=== PATIENT | male | born 1945 | race Caucasian/White ===

== ENCOUNTER 2016-07-24 09:27 | Day surgery (SDC) | payer OTHER, BC ==
[~2016-07-24] VITALS: Ht 182.9 cm; Wt 97.0 kg
[~2016-07-24 09:27] MED LIST: ADVAIR 500/501 DISK IH; DIOVAN160 MG PO; GLUCOPHAGE1000 MG PO; LEVO-T150 MCG PO; LO-DOSE ASPIRIN81 M2 PO; LOFIBRA,TRIGLI160 MG PO; PRILOSEC20 MG PO; TOPROL XL50 MG PO; VITAMIN B-6100 MG PO; VITAMIN D-32000 UNI2 PO; ZOCOR40 MG PO
[2016-07-24 10:48] VITALS: BP 138/67
[2016-07-24 11:44] LABS: POINT-OF-CARE METER ID UU14174212
[2016-07-24 12:52] LABS: POINT-OF-CARE METER ID UU13113675
[2016-07-24 14:01] VITALS: BP 142/83
[2016-07-24 14:56] VITALS: BP 155/78
== END 2016-07-24 14:55 | disposition home or self-care (01) ==
LOC: SDC 09:27
PROVIDERS: Urology
DX: N20.1 Calculus of ureter (principal); I10 Essential (primary) hypertension; E78.5 Hyperlipidemia, unspecified; E11.9 Type 2 diabetes mellitus without complications; Z79.84 Long term (current) use of oral hypoglycemic drugs; K21.9 Gastro-esophageal reflux disease without esophagitis; E03.9 Hypothyroidism, unspecified; J45.909 Unspecified asthma, uncomplicated; Z87.891 Personal history of nicotine dependence; Z98.890 Other specified postprocedural states; Z79.82 Long term (current) use of aspirin; Z82.49 Family history of ischemic heart disease and other diseases of the circulatory system; Z80.1 Family history of malignant neoplasm of trachea, bronchus and lung
CPT/HCPCS: 74000; 74420; 82948; C1876; J0131; J0330; J0690; J1170; J2250; J2405; J3010; J7050